=== PATIENT | female | born 1965 | race Caucasian/White ===

== ENCOUNTER 2016-12-16 13:50 | Day surgery (SDC) | payer BC, OTHER ==
[~2016-12-16] VITALS: Ht 167.6 cm; Wt 89.5 kg
[~2016-12-16 13:50] MED LIST: FLONASE NASAL S16 GM NS; LORTAB 5/500 501 TAB PO; QUESTRAN4 GM/9 GM PO
[2016-12-16] MEDS ORDERED: PROTONIX20 MG (14:12)
[2016-12-16 14:47] VITALS: BP 121/65; PULSE 69; TEMP 98.1
[2016-12-16 16:05] VITALS: BP 121/61; PULSE 64; TEMP 98.1
[2016-12-16 16:20] VITALS: BP 103/55; PULSE 78
[2016-12-16 16:35] VITALS: BP 108/49; PULSE 67
== END 2016-12-16 17:50 | disposition home or self-care (01) ==
LOC: SDCO 13:50
DX: K57.92 Diverticulitis of intestine, part unspecified, without perforation or abscess without bleeding (principal); K57.30 Diverticulosis of large intestine without perforation or abscess without bleeding; R13.12 Dysphagia, oropharyngeal phase; K22.2 Esophageal obstruction; K21.0 Gastro-esophageal reflux disease with esophagitis; K44.9 Diaphragmatic hernia without obstruction or gangrene; E78.00 Pure hypercholesterolemia, unspecified; Z79.899 Other long term (current) drug therapy
CPT/HCPCS: C1726; J2250; J2405; J3010; J7030

== ENCOUNTER 2016-12-19 10:40 | Emergency (ER) | payer BC, OTHER ==
[~2016-12-19] VITALS: Ht 167.6 cm; Wt 89.1 kg
[~2016-12-19 10:40] MED LIST changes: +PROTONIX20 MG
[2016-12-19 11:38] LABS: BASO # 0.1 (0.0-0.2); BASO % 0.8 % (0.0-2.0); EOS # 0.2 (0.0-0.7); EOS % 2.3 % (0-4.0); GRAN # 3.9 (1.4-6.5); GRAN % 51.4 % (42.2-75.2); HEMATOCRIT 39.1 % (37.0-47.0); HEMOGLOBIN 13.1 g/dl (12.5-16.0); LYMPH # 2.8 (1.2-3.4); LYMPH % 37.2 % (20.0-51.0); MEAN CELL VOLUME 90 fl (80.0-100.0); MEAN CORPUSCULAR HEMOGLOBIN 30 pg (27.0-31.0); MEAN CORPUSCULAR HGB CONC 34 g/dl (33.0-37.0); MEAN PLATELET VOLUME 10.5 fl (7.4-10.4); MONO # 0.6 (0.1-0.6); PLATELET COUNT 221 K/mm3 (130-400); RED BLOOD COUNT 4.36 M/mm3 (4.10-5.30); REDCELL DISTRIBUTION WIDTH-CV 11.8 % (11.5-14.5); WHITE BLOOD COUNT 7.5 K/mm3 (4.8-10.8)
[2016-12-19 11:42] LABS: PH 5 (5-8); SQUAMOUS EPITHELIAL 0-2 /hpf; URINE APPEARANCE Clear; URINE BACTERIA None Seen /hpf; URINE BILIRUBIN Negative (NEGATIVE); URINE BLOOD Negative (NEGATIVE); URINE COLOR Yellow; URINE GLUCOSE Negative (NEGATIVE); URINE KETONE Negative (NEGATIVE); URINE RBC 0-2 /hpf; URINE UROBILINOGEN Negative (NEGATIVE); URINE WBC 0-2 /hpf
[2016-12-19 11:50] LABS: ADJUSTED CALCIUM 9.5 mg/dL (8.4-10.2); ALBUMIN 3.8 gm/dL (3.5-5.0); BILIRUBIN,TOTAL 0.6 mg/dL (0.0-1.0); C-REACTIVE PROTEIN 0.7 mg/dL (0.0-0.9); CALCIUM 9.3 mg/dL (8.4-10.2); CREATININE, serum 1.06 mg/dL (0.52-1.25); POTASSIUM 3.9 mmol/L (3.4-5.0); TOTAL PROTEIN 6.5 gm/dL (6.4-8.2)
[2016-12-19] MEDS ORDERED: BACTRIM DS 8001 TAB PO (14:41)
[2016-12-19 15:10] VITALS: BP 107/45; PULSE 68; TEMP 97.6
== END 2016-12-19 15:21 | disposition home or self-care (01) ==
LOC: COL.ER 10:40
PROVIDERS: Emergency Medicine
DX: R10.32 Left lower quadrant pain (principal); R63.0 Anorexia; R11.0 Nausea; K57.30 Diverticulosis of large intestine without perforation or abscess without bleeding
CPT/HCPCS: J2405; J7030

== ENCOUNTER → 2017-01-04 | Outpatient (CLI) | payer BC, OTHER ==
[~2017-01-04] MED LIST changes: +BACTRIM DS 8001 TAB PO
== END ==
LOC: COL.RAD 10:42
DX: M53.3 Sacrococcygeal disorders, not elsewhere classified (principal)
CPT/HCPCS: J3301

== ENCOUNTER → 2018-03-16 | Outpatient (CLI) | payer BC, OTHER | LOC: COL.RAD 08:09 | DX: M53.3 Sacrococcygeal disorders, not elsewhere classified (principal) | CPT/HCPCS: J3301; Q9967 ==

== ENCOUNTER 2018-07-27 09:30 | Inpatient (IN) | payer BC, OTHER ==
[~2018-07-27] VITALS: Ht 167.6 cm; Wt 91.0 kg
[2018-10-31] VITALS (11 sets, daily range): BP systolic 98–119; BP diastolic 35–57; PULSE 64–90; TEMP 98.7–99.4
[2018-10-31] MEDS ORDERED: PROTONIX 40MG T40 MG PO (07:04)
[2018-10-31] MEDS ORDERED: FLONASEALLERGY NS (07:05)
[2018-10-31] MEDS ORDERED: EXCEDRIN1 TAB PO (07:07)
[2018-10-31] MEDS ORDERED: MULTI VITAMINS1 TAB PO (07:07)
--- NOTE | 2018-10-31 12:21 | NUR ---
Patient to room 323 post op. Report from Marge Victoria. Patient has been sleepy. Arousable to name. Her significant other at bedside. Vitals stable on room air. Scds Ble. Ivf to L.hand per orders. Patient abdomen soft, lap site x5 edges well approximated. Low transverse incisions to edges well approximated. Will continue to montior.
[2018-10-31 13:31] LABS: CALCIUM 8.6 mg/dL (8.4-10.2); CREATININE, serum 1.09 mg/dL (0.52-1.25); POTASSIUM 3.8 mmol/L (3.4-5.0)
--- NOTE | 2018-10-31 19:32 | NUR ---
Patient was up in chair & ambulated to the hallways. She did well, was a little light headed. Adequate urine output. Vasquez to DD. She is tolerating clears without nausea. Tylenol for pain management. Vss on room air. Scds ble. Patient was up to the bathroom & reported feeling "moist". Patient did have small amount of blood leaking from her rectum, she was assisted with pericare. Reported off to night nurse Evangelina who will monitor closely.
--- NOTE | 2018-10-31 22:30 | NUR ---
Patient ambulates in hallway with supervision. Had small amount of red drainage from rectum prior to walking, no drainage while walking or when returning to room. She does her oral cares independently before going to bed.
[2018-11-01 00:12] VITALS: BP 99/31; PULSE 86; TEMP 98.8
[2018-11-01 04:10] VITALS: BP 106/44; PULSE 78; TEMP 98.6
[2018-11-01 08:12] VITALS: BP 118/58; PULSE 75; TEMP 99.1
[2018-11-01 08:12] LABS: HEMATOCRIT 37.8 % (37.0-47.0); HEMOGLOBIN 11.9 g/dl (12.5-16.0)
--- NOTE | 2018-11-01 09:15 | NUR ---
Patient alert and oriented, answers questions appropriately. See assessment. Abdomen soft, non distended, non tender. Lap sites x5 and low transverse incision with edges well approximated, no redness nor drainage noted. -Flatus. Bowel sounds hyperactive x4 quads. C/o SOA, inability to get a deep breath. Lungs CTA. Oximeter 93-95% Dr Prince notified, CXR order received. No other c/o at this time.
--- NOTE | 2018-11-01 10:06 | NUR ---
JEANNE and SW student met with the patient to discuss discharge plan. The patient lives in [place] with her , Jameel. She reports independence with ADLs and does not use any DME. The patient's PCP is Dr. Roberto Bermudez and she receives her medications at [facility]. She reports no difficulties obtaining her meds. The patient does not have advanced directives, but she was interested in obtaining a form for DPOA-HC. SW provided. The patient plans to return home with her upon discharge. No additional needs at this time.
--- NOTE | 2018-11-01 10:52 | NUR ---
Pt. VSS. C/o ABD pain that is exacerbated by coughing but has been using a pillow for splinting. Pt. uses IS appropriately. Pt. walked with this nurse around the surgical floor x1. Voided urine x2 so far this shift. Surgical incisions are well approximated and show no signs of redness or warmth.
[2018-11-01 12:05] VITALS: BP 106/49; PULSE 61; TEMP 98.5
--- NOTE | 2018-11-01 12:18 | NUR ---
First visit from the urban design consultant. No needs right now.
--- NOTE | 2018-11-01 13:38 | NUR ---
Pt. has five abdominal incisions that are well approximated and absent of redness and warmth. Bowel sounds active x4 quadrants. Lung sounds clear to auscultation. Pt. has been continent of urine this shift. No BM noted yet.
[2018-11-01 20:54] VITALS: BP 107/40; PULSE 71; TEMP 98.7
--- NOTE | 2018-11-01 21:00 | NUR ---
Patient up ad kamila in room. Lap incisions to abdomen glued and dry. Low transverse incision also glued and dry. Pain controlled with scheduled ES Tylenol. SL to left hand without redness or swelling. Reports minimal drainage from rectum with what she thought was stool earlier today, is passing flatus. Taking low fiber diet without problem. Hoping to go home tomorrow.
[2018-11-01 23:40] VITALS: BP 99/44; PULSE 72; TEMP 98.5
[2018-11-02 03:22] VITALS: BP 99/30; PULSE 71; TEMP 99.2
[2018-11-02 07:26] VITALS: BP 119/41; PULSE 56; TEMP 98.1
--- NOTE | 2018-11-02 07:40 | NUR ---
Plan of care discussed with patient for possible discharge this afternoon. Verbalizes understanding. Denies any questions or concerns. Ordered AM meal and wants to shower after. Instructed to call for assistance with covering IV. Assessment complete. Will Continue to monitor.
--- NOTE | 2018-11-02 10:00 | NUR ---
Patient alert and oriented, answers questions appropriately. See assessment. Abdomen soft, non tender, non distended. Bowl sounds active x4 quads. +Flatus. +BM. Lap sites and low transverse incision with edges well approximated, no redness or drainage noted. Ambulates in halls independently. Awaiting discharge today.
--- NOTE | 2018-11-02 10:26 | NUR ---
Pt. VSS. Lung sounds clear to auscultation. Bowel sounds active x4 quadrants. No c/o SOB this shift.
[2018-11-02 12:40] VITALS: BP 104/54; PULSE 64; TEMP 98.9
--- NOTE | 2018-11-02 13:21 | NUR ---
Pt. consumed a sandwich for lunch and stated they tolerated it well.
--- NOTE | 2018-11-02 13:59 | NUR ---
Discharge instructions given both verbal and handwritten. Discussed f/u appointment, s/s of infection, home medications and incision care. Verbalizes understanding and denies any questions or concerns. IV DCd, 18g, cath intact. no redness or swelling noted. Instructed to call when ride arrives to be escorted out to POV. Verbalizes understanding.
== END 2018-11-02 14:35 | disposition home or self-care (01) | DRG 331 ==
LOC: INPTSU 10-31 05:22 → SURG 10-31 05:22
PROVIDERS: ADMIT Surgery
PROC: 0DNM4ZZ Release Descending Colon, Percutaneous Endoscopic Approach (ICD-10-PCS; 2018-10-31)
PROC: 0DNN4ZZ Release Sigmoid Colon, Percutaneous Endoscopic Approach (ICD-10-PCS; 2018-10-31)
PROC: 8E0W4CZ Robotic Assisted Procedure of Trunk Region, Percutaneous Endoscopic Approach (ICD-10-PCS; 2018-10-31)
PROC: 0DTN4ZZ Resection of Sigmoid Colon, Percutaneous Endoscopic Approach (ICD-10-PCS; principal; 2018-10-31 07:30)
DX: K57.32 Diverticulitis of large intestine without perforation or abscess without bleeding (principal); K66.0 Peritoneal adhesions (postprocedural) (postinfection); K21.9 Gastro-esophageal reflux disease without esophagitis
CPT/HCPCS: A4314; A9284; J0690; J1100; J1650; J2370; J2405; J2704; J2765; J3010; J7050; J7120

== ENCOUNTER → 2018-10-01 | Outpatient (CLI) | payer BC, OTHER | LOC: COL.RAD 08:36 | DX: M51.37 Other intervertebral disc degeneration, lumbosacral region (principal) | CPT/HCPCS: J3301; Q9967 ==